=== PATIENT | female | born 1965 | race Caucasian/White ===

== ENCOUNTER 2017-08-07 17:27 | Emergency (ER) | payer OTHER ==
[~2017-08-07] VITALS: Ht 157.4 cm; Wt 62.1 kg
[~2017-08-07 17:27] MED LIST: BACTRIM DS 8001 TA1 PO; CLARITIN10 MG PO; CLINDAMYCIN HC300 MG PO; FLAGYL500 MG PO; FLEXERIL5 MG PO; HYDROCODONE BIT1 T11 PO; MEDROL DOSEPAK4 MG PO; MOTRIN800 MG PO; PYRIDIUM200 M1 PO; TRAMADOL HCL50 MG PO; ULTRAM50 MG PO; VIBRAMYCIN100 MG PO
[2017-08-07 17:57] LABS: BILIRUBIN NEGATIVE (NEGATIVE); BLOOD 1+ (NEGATIVE); CLARITY SL CLOUDY (CLEAR); COLOR YELLOW (YELLOW); GLUCOSE NEGATIVE (NEGATIVE); KETONE NEGATIVE (NEGATIVE); LEUKO ESTERASE 1+ (NEGATIVE); NITRITE NEGATIVE (NEGATIVE); SPECIFIC GRAVITY >= 1.030 (1.005-1.030); UROBILINOGEN 0.2 E.U./dl (0.2-1.0)
[2017-08-07 18:16] LABS: BACTERIA 4+
[2017-08-07 18:20] LABS: BASO % 0.4 % (0.0-1.0); EOS # 0.2 10*3/uL (0.0-0.4); EOS % 2.1 % (1.0-4.0); HEMOGLOBIN 14.6 g/dl (12.0-16.0); LYMPH # 2.9 10*3/uL (1.3-4.4); MEAN CELL VOLUME 89.6 fl (81.0-99.0); MEAN CORPUSCULAR HGB 31.1 pg (27.0-31.0); MEAN CORPUSCULAR HGB CONC 34.8 g/dl (33.0-37.0); MEAN PLATELET VOLUME 8.8 fl (9.6-12.3); MONO # 0.5 10*3/uL (0.1-1.0); MONO % 5.2 % (3.0-9.0); NEUT # 5.7 10*3/uL (2.3-7.9); PLATELET COUNT AUTOMATED 314 10*3/uL (130-400); RED BLOOD COUNT 4.69 10*6/uL (4.10-5.10); RED CELL DISTRI WIDTH 12.3 % (0-14.5); WHITE BLOOD COUNT 9.3 10*3/uL (4.8-10.8)
[2017-08-07 18:34] LABS: ALBUMIN 3.9 gm/dl (3.1-4.5); ALKALINE PHOSPHATASE 123 U/L (45-117); BUN 5 mg/dl (7-24); CHLORIDE 103 mmol/L (98-107); CREATININE 0.89 mg/dL (0.55-1.02); POTASSIUM 3.4 mmol/L (3.5-5.1); SGOT/AST 16 IU/L (3-35); SGPT/ALT 26 U/L (12-78); SODIUM 139 mmol/L (136-145); TOTAL PROTEIN 7.4 gm/dL (6.4-8.2)
== END 2017-08-07 19:08 | disposition home or self-care (01) ==
LOC: ED 17:27
PROVIDERS: Nurse Practitioner Family
DX: G43.909 Migraine, unspecified, not intractable, without status migrainosus (principal); F17.200 Nicotine dependence, unspecified, uncomplicated; Z98.51 Tubal ligation status; Z79.899 Other long term (current) drug therapy; Z88.1 Allergy status to other antibiotic agents; Z88.6 Allergy status to analgesic agent

== ENCOUNTER 2017-09-13 10:09 | Emergency (ER) | payer OTHER ==
[2017-09-13] MEDS ORDERED: TYLENOL325 M1 PO (10:20)
[2017-09-13] MEDS ORDERED: PENICILLIN-VK500 MG PO (10:20)
[2017-09-13] MEDS ORDERED: NAPROSYN500 MG PO (10:20)
== END 2017-09-13 10:44 | disposition home or self-care (01) ==
LOC: ED 10:09
DX: K04.7 Periapical abscess without sinus (principal); G43.909 Migraine, unspecified, not intractable, without status migrainosus; Z98.51 Tubal ligation status; Z88.1 Allergy status to other antibiotic agents; Z88.6 Allergy status to analgesic agent

== ENCOUNTER → 2020-01-13 | Outpatient (CLI) | payer OTHER ==
[~2020-01-13] MED LIST changes: +NAPROSYN500 MG PO; +PENICILLIN-VK500 MG PO; +TYLENOL325 M1 PO
[2020-01-13 09:57] LABS: BASO % 0.6 % (0.0-1.0); EOS # 0.1 10*3/uL (0.0-0.4); EOS % 1.5 % (1.0-4.0); HEMATOCRIT 41.9 % (37.0-47.0); MEAN CELL VOLUME 93.3 fl (81.0-99.0); MEAN CORPUSCULAR HGB 31.2 pg (27.0-31.0); MEAN CORPUSCULAR HGB CONC 33.4 g/dl (33.0-37.0); MEAN PLATELET VOLUME 9.1 fl (9.6-12.3); MONO # 0.4 10*3/uL (0.1-1.0); MONO % 5.9 % (3.0-9.0); NEUT # 4.2 10*3/uL (2.3-7.9); NEUT % 61.4 % (47.0-73.0); PLATELET COUNT AUTOMATED 285 10*3/uL (130-400); RED BLOOD COUNT 4.49 10*6/uL (4.10-5.10); RED CELL DISTRI WIDTH 12.9 % (0-14.5); WHITE BLOOD COUNT 6.8 10*3/uL (4.8-10.8)
[2020-01-13 10:18] LABS: ALBUMIN 3.6 gm/dl (3.1-4.5); BUN 7 mg/dl (7-24); CHOLESTEROL 258 mg/dL (<200); CREATININE 0.87 mg/dL (0.55-1.02); SGOT/AST 25 IU/L (3-35); SGPT/ALT 47 U/L (12-78)
[2020-01-13 10:35] LABS: ALKALINE PHOSPHATASE 118 U/L (45-117); CHLORIDE 105 mmol/L (98-107); HDL CHOLESTEROL 43 mg/dl (40-60); LDL CHOLESTEROL 173 mg/dL (9-159); SODIUM 139 mmol/L (136-145); TOTAL PROTEIN 7.2 gm/dL (6.4-8.2); TRIGLYCERIDES 211 mg/dl (<150); VLDL CHOLESTEROL 42 mg/dL (6-40)
== END | disposition home or self-care (01) ==
LOC: LAB 08:59
PROVIDERS: ATTEND Nurse Practitioner Primary Care
DX: M46.02 Spinal enthesopathy, cervical region (principal); E55.9 Vitamin D deficiency, unspecified; G43.009 Migraine without aura, not intractable, without status migrainosus; Z79.899 Other long term (current) drug therapy

== ENCOUNTER 2020-01-21 13:49 | Emergency (ER) | payer OTHER ==
[~2020-01-21] VITALS: Ht 157.4 cm; Wt 71.7 kg
[2020-01-21] MEDS ORDERED: IBUPROFEN600 MG PO (15:39)
== END 2020-01-21 16:18 | disposition home or self-care (01) ==
LOC: ED 13:49
DX: S93.401A Sprain of unspecified ligament of right ankle, initial encounter (principal); S93.601A Unspecified sprain of right foot, initial encounter; Z88.8 Allergy status to other drugs, medicaments and biological substances; Z79.899 Other long term (current) drug therapy; X58.XXXA Exposure to other specified factors, initial encounter; Y93.89 Activity, other specified; Y92.89 Other specified places as the place of occurrence of the external cause; Y99.8 Other external cause status

== ENCOUNTER → 2021-01-01 | Outpatient (CLI) | payer OTHER ==
[~2021-01-01] MED LIST changes: +ATORVASTATIN CA10 M1 PO; +FAMOTIDINE20 M1 PO; +IBUPROFEN600 MG PO; +OYSTER SHELL 51 EACH PO; +VITAMIN D-40010 MCG PO
== END | disposition home or self-care (01) ==
LOC: MAMMO 08:17
PROVIDERS: ATTEND Nurse Practitioner Primary Care
DX: Z12.31 Encounter for screening mammogram for malignant neoplasm of breast (principal); I73.9 Peripheral vascular disease, unspecified; M79.671 Pain in right foot; M79.672 Pain in left foot

== ENCOUNTER → 2021-01-18 | Day surgery (SDC) | payer OTHER ==
[~2021-01-18] VITALS: Ht 157.4 cm; Wt 77.6 kg
[~2021-01-18] MED LIST changes: +CARAFATE1 G1 PO
[2021-01-18 09:19] VITALS: BP 116/45
[2021-01-18 10:43] VITALS: BP 101/76
[2021-01-18 10:58] VITALS: BP 157/79
[2021-01-18 11:13] VITALS: BP 139/64
== END | disposition home or self-care (01) ==
LOC: SDC 01-15 08:00
PROVIDERS: ATTEND Surgery
DX: Z12.11 Encounter for screening for malignant neoplasm of colon (principal); D12.2 Benign neoplasm of ascending colon; D12.3 Benign neoplasm of transverse colon; K62.1 Rectal polyp; K21.00 Gastro-esophageal reflux disease with esophagitis, without bleeding; K57.30 Diverticulosis of large intestine without perforation or abscess without bleeding; K29.50 Unspecified chronic gastritis without bleeding; Z98.51 Tubal ligation status; Z98.890 Other specified postprocedural states; Z79.899 Other long term (current) drug therapy; Z20.822 Contact with and (suspected) exposure to COVID-19

== ENCOUNTER → 2021-08-24 | Outpatient (CLI) | payer OTHER | END | disposition home or self-care (01) | LOC: CT 08-03 10:00 | PROVIDERS: ATTEND Nurse Practitioner Primary Care | DX: J42 Unspecified chronic bronchitis (principal); Z72.0 Tobacco use ==

== ENCOUNTER 2022-02-02 09:12 | Emergency (ER) | payer OTHER ==
[~2022-02-02] VITALS: Ht 162.5 cm; Wt 72.6 kg
[2022-02-02 09:49] LABS: BASO % 0.5 % (0.0-1.0); EOS % 0.2 % (1.0-4.0); HEMATOCRIT 39.4 % (37.0-47.0); LYMPH # 1.5 10*3/uL (1.3-4.4); LYMPH % 24.7 % (27.0-41.0); MEAN CELL VOLUME 92.1 fl (81.0-99.0); MEAN CORPUSCULAR HGB 30.8 pg (27.0-31.0); MEAN CORPUSCULAR HGB CONC 33.5 g/dl (33.0-37.0); MEAN PLATELET VOLUME 8.7 fl (9.6-12.3); MONO # 0.5 10*3/uL (0.1-1.0); MONO % 7.6 % (3.0-9.0); NEUT # 3.9 10*3/uL (2.3-7.9); NEUT % 66.7 % (47.0-73.0); PLATELET COUNT AUTOMATED 232 10*3/uL (130-400); RED BLOOD COUNT 4.28 10*6/uL (4.10-5.10); RED CELL DISTRI WIDTH 13.2 % (0-14.5); WHITE BLOOD COUNT 5.9 10*3/uL (4.8-10.8)
[2022-02-02 10:05] LABS: ACT PARTIAL THROMBO TIME 28.3 SECONDS (20.0-32.1)
[2022-02-02 10:12] LABS: ALKALINE PHOSPHATASE 113 U/L (45-117); BUN 11 mg/dl (7-24); CHLORIDE 103 mmol/L (98-107); POTASSIUM 3.1 mmol/L (3.5-5.1); SGOT/AST 23 IU/L (3-35); SGPT/ALT 23 U/L (12-78); SODIUM 137 mmol/L (136-145); TOTAL PROTEIN 6.7 gm/dL (6.4-8.2)
[2022-02-02] MEDS ORDERED: PREDNISONE20 M1 PO (10:25)
[2022-02-02] MEDS ORDERED: VIBRAMYCIN100 MG PO (10:25)
== END 2022-02-02 10:36 | disposition home or self-care (01) ==
LOC: ED 09:12
PROVIDERS: Family Medicine
DX: J44.1 Chronic obstructive pulmonary disease with (acute) exacerbation (principal); Z20.822 Contact with and (suspected) exposure to COVID-19; Z88.1 Allergy status to other antibiotic agents; Z88.8 Allergy status to other drugs, medicaments and biological substances; Z79.899 Other long term (current) drug therapy; Z98.51 Tubal ligation status; Z90.89 Acquired absence of other organs

== ENCOUNTER 2023-01-29 03:54 | Emergency (ER) | payer OTHER ==
[~2023-01-29] VITALS: Ht 157.4 cm; Wt 74.4 kg
[~2023-01-29 03:54] MED LIST changes: +PREDNISONE20 M1 PO
[2023-01-29] MEDS ORDERED: NAPROXEN250 MG PO (04:05)
[2023-01-29] MEDS ORDERED: METHOCARBAMOL750 M1 PO (04:05)
[2023-01-29] MEDS ORDERED: CYCLOBENZAPRIN7.5 M2 PO (04:08)
[2023-01-29] MEDS ORDERED: ASPIRIN ADULT L81 M1 PO (04:10)
== END 2023-01-29 04:36 | disposition home or self-care (01) ==
LOC: ED 03:54
DX: S39.012A Strain of muscle, fascia and tendon of lower back, initial encounter (principal); J44.9 Chronic obstructive pulmonary disease, unspecified; Z88.1 Allergy status to other antibiotic agents; Z88.8 Allergy status to other drugs, medicaments and biological substances; Z98.51 Tubal ligation status; Z98.890 Other specified postprocedural states; X58.XXXA Exposure to other specified factors, initial encounter; Y93.89 Activity, other specified; Y92.009 Unspecified place in unspecified non-institutional (private) residence as the place of occurrence of the external cause; Y99.8 Other external cause status

== ENCOUNTER → 2023-08-18 | Outpatient (CLI) | payer OTHER ==
[~2023-08-18] MED LIST changes: +ASPIRIN ADULT L81 M1 PO; +CYCLOBENZAPRIN7.5 M2 PO; +METHOCARBAMOL750 M1 PO; +NAPROXEN250 MG PO
== END | disposition home or self-care (01) ==
LOC: MAMMO 07-24 02:20
PROVIDERS: ATTEND Internal Medicine
DX: Z12.31 Encounter for screening mammogram for malignant neoplasm of breast (principal)

== ENCOUNTER 2023-09-22 10:18 | Emergency (ER) | payer OTHER ==
[~2023-09-22] VITALS: Ht 157.4 cm; Wt 82.1 kg
[2023-09-22] MEDS ORDERED: Rabies Immune Globulin 300 UNIT/2 ML VIAL IM ONE ×2 (10:45→10:50)
[2023-09-22] MEDS ORDERED: Rabies Vaccine 1 ML VIAL IM ONE (10:45)
[2023-09-22] MEDS ORDERED: Rabies Immune Globulin 150O UNIT/10 ML IM ONE (10:50)
== END 2023-09-22 12:11 | disposition home or self-care (01) ==
LOC: ED 10:18
DX: S41.152A Open bite of left upper arm, initial encounter (principal); J44.9 Chronic obstructive pulmonary disease, unspecified; Z20.3 Contact with and (suspected) exposure to rabies; Z88.1 Allergy status to other antibiotic agents; Z88.8 Allergy status to other drugs, medicaments and biological substances; Z98.51 Tubal ligation status; Z98.890 Other specified postprocedural states; Z87.891 Personal history of nicotine dependence; W55.01XA Bitten by cat, initial encounter; Y93.89 Activity, other specified; Y92.89 Other specified places as the place of occurrence of the external cause; Y99.8 Other external cause status

== ENCOUNTER 2023-09-25 14:25 | Emergency (ER) | payer OTHER ==
[~2023-09-25] VITALS: Ht 157.4 cm; Wt 82.1 kg
[2023-09-25] MEDS ORDERED: Rabies Vaccine 1 ML VIAL IM ONE (15:30)
== END 2023-09-25 15:57 | disposition home or self-care (01) ==
LOC: ED 14:25
DX: T14.8XXD Other injury of unspecified body region, subsequent encounter (principal); R19.7 Diarrhea, unspecified; R11.0 Nausea; R42 Dizziness and giddiness; J44.9 Chronic obstructive pulmonary disease, unspecified; G43.909 Migraine, unspecified, not intractable, without status migrainosus; Z88.8 Allergy status to other drugs, medicaments and biological substances; Z88.1 Allergy status to other antibiotic agents; Z98.51 Tubal ligation status; Z98.890 Other specified postprocedural states; W55.01XD Bitten by cat, subsequent encounter

== ENCOUNTER 2023-09-29 10:37 | Emergency (ER) | payer OTHER ==
[~2023-09-29] VITALS: Ht 157.4 cm; Wt 82.1 kg
[2023-09-29] MEDS ORDERED: PREDNISONE10 MG PO (10:50)
[2023-09-29] MEDS ORDERED: AMOX-CLAV 875-1 EACH PO (10:50)
[2023-09-29] MEDS ORDERED: Rabies Vaccine 1 ML VIAL IM ONE (10:55)
== END 2023-09-29 11:05 | disposition home or self-care (01) ==
LOC: ED 10:37
DX: Z23 Encounter for immunization (principal); J44.9 Chronic obstructive pulmonary disease, unspecified; Z91.048 Other nonmedicinal substance allergy status; Z88.1 Allergy status to other antibiotic agents; Z88.8 Allergy status to other drugs, medicaments and biological substances; Z79.82 Long term (current) use of aspirin; Z79.899 Other long term (current) drug therapy; Z98.51 Tubal ligation status

== ENCOUNTER 2023-10-06 10:28 | Emergency (ER) | payer OTHER ==
[~2023-10-06] VITALS: Ht 157.4 cm; Wt 82.1 kg
[~2023-10-06 10:28] MED LIST changes: +AMOX-CLAV 875-1 EACH PO; +PREDNISONE10 MG PO
[2023-10-06] MEDS ORDERED: Rabies Vaccine 1 ML VIAL IM ONE (10:40)
== END 2023-10-06 10:53 | disposition home or self-care (01) ==
LOC: ED 10:28
DX: Z23 Encounter for immunization (principal); J44.9 Chronic obstructive pulmonary disease, unspecified; R07.89 Other chest pain; R06.02 Shortness of breath; R42 Dizziness and giddiness; R19.7 Diarrhea, unspecified; Z88.1 Allergy status to other antibiotic agents; Z88.8 Allergy status to other drugs, medicaments and biological substances; Z98.51 Tubal ligation status; Z98.890 Other specified postprocedural states